=== PATIENT | female | born 1950 | race Caucasian/White ===

== ENCOUNTER → 2019-10-04 09:03 | Outpatient (CLI) | payer MEDICARE, BC, SELFPAY ==
--- NOTE | 2019-10-04 | DI.RAD.S_ITS ---
PROCEDURE: XR SHOULDER LT MIN 2V INDICATIONS: bilateral shoulder pain TECHNIQUE: 3 views of the shoulder were acquired. COMPARISON: [facility], CR, XR SHOULDER RT MIN 2V, 10/04/2019, 9:08. FINDINGS: Bones: No fractures or dislocations. No suspicious bony lesions. Visualized ribs appear intact. Mild to moderate acromioclavicular and glenohumeral joint degeneration. Degenerative disc and facet disease noted in the lower cervical spine. Soft tissues: No suspicious soft tissue calcifications. IMPRESSION: 1. Xlnr-vl-kfsutxep degenerative joint disease. 2. Degenerative disc and facet disease in the lower cervical spine. Dictated by: Bethany Burks M.D. on 10/04/2019 at 10:27 Approved by: Bethany Burks M.D. on 10/04/2019 at 10:29
--- NOTE | 2019-10-04 | DI.RAD.S_ITS ---
PROCEDURE: XR SHOULDER RT MIN 2V INDICATIONS: Bilateral shoulder pain TECHNIQUE: 3 views of the shoulder were acquired. COMPARISON: None. FINDINGS: Bones: No fractures or dislocations. Superior subluxation of humeral head. There is moderate acromioclavicular and glenohumeral joint degeneration. No suspicious bony lesions. Visualized ribs appear intact. Soft tissues: No suspicious soft tissue calcifications. IMPRESSION: 1. Moderate degenerative joint disease. 2. Superior migration of humeral head suggesting rotator cuff tear. If clinical symptoms persist or clinical suspicion for internal derangement is high, MRI is suggested for further evaluation. Dictated by: Bethany Burks M.D. on 10/04/2019 at 10:20 Approved by: Bethany Burks M.D. on 10/04/2019 at 10:27
== END ==
PROVIDERS: PCP Family Medicine; Visit Provider Family Medicine
DX: M25.512 Pain in left shoulder (principal); M25.511 Pain in right shoulder; M19.011 Primary osteoarthritis, right shoulder; M19.012 Primary osteoarthritis, left shoulder; M50.30 Other cervical disc degeneration, unspecified cervical region
CPT/HCPCS: 73030

== ENCOUNTER → 2019-11-07 08:13 | Outpatient (CLI) | payer MEDICARE, BC, SELFPAY ==
--- NOTE | 2019-11-07 | DI.US.S_ITS ---
LIMITED ULTRASOUND OF LEFT BREAST: 11/07/2019 CLINICAL: Focal left breast pain. Comparison is made to exams dated: 11/07/2019 mammogram - [facility], 09/14/2018 mammogram, 08/17/2017 mammogram, and 07/31/2017 mammogram - [facility]. Real-time ultrasound of the left breast 1-2 o'clock region was performed on the area of interest. IMPRESSION: NEGATIVE There is no sonographic evidence of malignancy. There are no abnormalities seen in the left breast to correspond with the pain at 1 and 2 o'clock, however, clinical followup is recommended. A 1 year screening mammogram is recommended. This exam was interpreted at Station ID: [id number]. Electronically Signed By: Jayden vergara/mayda:11/07/2019 09:47:06 letter sent: Clinical Evaluation Ultrasound BI-RADS: 1 Negative
--- NOTE | 2019-11-07 | DI.MG.S_ITS ---
BILATERAL DIGITAL DIAGNOSTIC MAMMOGRAM 3D/2D: 11/07/2019 CLINICAL: Diffuse Cystic mastopathy of Unspecified breast. Comparison is made to exams dated: 09/14/2018 mammogram, 08/17/2017 mammogram, 07/31/2017 mammogram, and 05/29/2015 mammogram - [facility]. There are scattered fibroglandular elements in both breasts. No significant masses, calcifications, or other findings are seen in either breast. IMPRESSION: INCOMPLETE: NEEDS ADDITIONAL IMAGING EVALUATION There is no abnormality seen in the left breast to correspond with the pain in the upper outer quadrant, however, ultrasound is recommended. This exam was interpreted at Station ID: [id number]. NOTE: For mammograms, a report in lay terms will be sent to the patient. Approximately 15% of breast malignancies will not be visualized mammographically. In the management of a palpable breast mass, a negative mammogram must not discourage biopsy of a clinically suspicious lesion. Electronically Signed By: Jayden vergara/mayda:11/07/2019 09:04:23 ACR BI-RADS Category 0: Incomplete 3340F
== END ==
PROVIDERS: PCP Family Medicine; Referring Provider Family Medicine; Visit Provider Family Medicine
DX: R92.8 Other abnormal and inconclusive findings on diagnostic imaging of breast (principal); N60.19 Diffuse cystic mastopathy of unspecified breast; N64.4 Mastodynia
CPT/HCPCS: 76642; 77066; G0279

== ENCOUNTER → 2020-02-29 12:25 | Outpatient (CLI) | payer MEDICARE, BC, SELFPAY ==
--- NOTE | 2020-02-29 | DI.RAD.S_ITS ---
PROCEDURE: XR LUMBAR SPINE MIN 4V INDICATIONS: Other intervertebral disc degeneration, lumbar region TECHNIQUE: 3 views of the lumbar spine were acquired. COMPARISON: None. FINDINGS: Bones: There are 5 veo-ked-xjldeae lumbar vertebral bodies. There is grade I L2 on L3 retrolisthesis and grade I L4 on L5 anterolisthesis. Mild to moderate degenerative changes are present most severe at L2-3 and L5-S1. No compression deformities. Soft tissues: Overlying bowel gas pattern is normal. No suspicious soft tissue calcifications. IMPRESSION: Degenerative change. Spondylolisthesis. Dictated by: Kami Roblero M.D. on 02/29/2020 at 17:09 Approved by: Kami Roblero M.D. on 02/29/2020 at 17:09
== END ==
PROVIDERS: PCP Family Medicine; Referring Provider Family Medicine; Visit Provider Family Medicine
DX: M51.36 Other intervertebral disc degeneration, lumbar region (principal); M47.816 Spondylosis without myelopathy or radiculopathy, lumbar region; M47.817 Spondylosis without myelopathy or radiculopathy, lumbosacral region; M43.16 Spondylolisthesis, lumbar region
CPT/HCPCS: 72100

== ENCOUNTER → 2020-04-10 12:51 | Outpatient (CLI) | payer MEDICARE, BC, SELFPAY ==
--- NOTE | 2020-04-10 12:55 | DI.MRI.S_ITS ---
PROCEDURE: MR LUMBAR SPINE WO CON INDICATIONS: Other intervertebral disc degeneration, lumbar reg TECHNIQUE: Noncontrast sagittal T1 spin echo and T2 fast echo, sagittal STIR, axial T1 and T2 fast spin echo through the lumbar spine. In cases with scoliosis, additional coronal T2 fast spin echo may be performed. COMPARISON: [facility], CR, XR LUMBAR SPINE MIN 4V, 02/29/2020, 12:48. FINDINGS: Image quality: Excellent. Alignment and Curvature: 5 lumbar type vertebral bodies are present by plain film. There is mild grade 1 retrolisthesis of L1 on L2, L2 on L3, and L3 on L4. Mild grade 1 anterolisthesis of L4 on L5. Bone Marrow: Marrow is of normal overall signal. No acute vertebral body compression fractures. There is moderate reactive signal within the endplates adjacent to the L2-L3 intervertebral disc. Mild reactive signal within the endplates adjacent to the T12-L1, L1-L2, L3-L4, L4-L5, and L5-S1 intervertebral discs. Spinal Cord: Conus medullaris terminates at the upper L1 level. Visualized cord demonstrates normal signal and size. Paraspinous Soft Tissues: No paravertebral masses. L1-L2: Moderate disc height loss and desiccation. Mild diffuse disc bulge. Mild canal stenosis. No foraminal stenosis. L2-L3: Moderate disc height loss and desiccation. Mild diffuse disc bulge/osteophyte. Mild facet and ligamentum hypertrophy. Mild epidural lipomatosis. Mild canal stenosis. Mild bilateral foraminal stenosis. L3-L4: Mild disc desiccation and diffuse disc bulge. Mild facet and ligament flavum hypertrophy. Mild epidural lipomatosis. Mild canal stenosis. Mild bilateral foraminal stenosis. L4-L5: Moderate disc height loss and desiccation. Mild diffuse disc bulge. Moderate facet and ligamentum flavum hypertrophy. Mild canal stenosis. Mild bilateral foraminal stenosis. L5-S1: Moderate disc height loss and desiccation. Mild diffuse disc bulge/osteophyte. Mild bilateral facet hypertrophy. Mild canal stenosis. Moderate bilateral foraminal stenosis. IMPRESSION: 1. Multilevel degenerative disc and facet disease, as well as ligamentum flavum hypertrophy and epidural lipomatosis. 2. Mild multilevel canal stenoses. 3. Multilevel foraminal stenoses, worst at L5-S1 bilaterally where there are moderate foraminal stenoses present. Dictated by: Osmar Flores M.D. on 04/10/2020 at 13:34 Approved by: Osmar Flores M.D. on 04/10/2020 at 13:40
== END ==
PROVIDERS: PCP Family Medicine; Referring Provider Family Medicine; Visit Provider Family Medicine
DX: M51.36 Other intervertebral disc degeneration, lumbar region (principal); M51.37 Other intervertebral disc degeneration, lumbosacral region; M47.816 Spondylosis without myelopathy or radiculopathy, lumbar region; M47.817 Spondylosis without myelopathy or radiculopathy, lumbosacral region; M48.061 Spinal stenosis, lumbar region without neurogenic claudication; M48.07 Spinal stenosis, lumbosacral region; E88.2 Lipomatosis, not elsewhere classified
CPT/HCPCS: 72148

== ENCOUNTER → 2020-06-11 12:41 | Outpatient (CLI) | payer MEDICARE, BC, SELFPAY ==
[2020-06-12 17:12] LABS: COVID19 Sendout Not Detected (Not Detect)
== END ==
PROVIDERS: PCP Family Medicine; Visit Provider Nurse Practitioner
DX: Z11.59 Encounter for screening for other viral diseases (principal)
CPT/HCPCS: 87635

== ENCOUNTER 2020-06-14 08:08 | Outpatient (CLI) | payer MEDICARE, BC, SELFPAY ==
[2020-06-14] VITALS (7 sets, daily range): BP systolic 112–167; BP diastolic 58–75; PULSE 43–53; RESP 13–17; O2SAT 99–100
--- NOTE | 2020-06-14 08:13 | DI.RAD.S_ITS ---
PROCEDURE: PAIN L/S FACET INJ/BLK 1ST MILO COMPARISON: None. INDICATIONS: SPONDYLOSIS FINDINGS: Fluoroscopic spot filming was performed to verify placement of spinal needles at the L4-L5, L5-S1 level(s), as labeled on the films. Appropriate location(s) of the needle tip(s) was confirmed by injection of iodinated contrast. Dictated by: Bladimir Mazariegos M.D. on 06/14/2020 at 10:06 Approved by: Bladimir Mazariegos M.D. on 06/14/2020 at 10:07
[2020-06-14] MEDS: fentaNYL 100 MCG/2 ML INJ 50 MCG IV (09:38)
[2020-06-14] MEDS: MIDAZOLAM 5 MG/5 ML VIAL IV (09:43)
[2020-06-14] MEDS: BETAMETHASONE 30 MG/5 ML MDV 12 MG INJ (09:43)
[2020-06-14] MEDS: LIDOCAINE 1% 20 ML 10 ML INJ (09:44)
[2020-06-14] MEDS: IOPAMIDOL 15 ML VIAL 3 ML INJ (09:44)
[2020-06-14] MEDS: BUPIVACAINE 0.5% (PF) VIAL 2 ML INJ (09:44)
--- NOTE | 2020-06-14 09:52 | P.PCN_ITS ---
Date/Time/Diagnoses Date of procedure: 06/14/20 Time of procedure: 09:52 Pre-procedure diagnosis: 1. FACET ARTHROPATHY 2. AXIAL LBP 3. MULTILEVEL DDD Post-procedure diagnosis: same Procedure Notes Procedure: 1. FLUOROSCOPICALLY GUIDED CONTRAST CONTROLLED FACET JOINT INJECTIONS BILATERAL L4/5, L5/S1 Indications: Ruth is referred by for treatment of Axial LBP Physician: Leonard Hester Total Fluoroscopy time (seconds): 16 Total sedation minutes: 11 Complications: none Procedure in detail & Post-procedure care: FINDINGS Multilevel Facet Arthropathy with Clinically significant axial LBP DESCRIPTION OF PROCEDURE Fluoroscopically guided, contrast-controlled bilateral L4/5, L5/S1 facet joint injections. Following review of allergy and review of potential side effects and complications, including, but not necessarily limited to, infection, allergic reaction, local tissue breakdown, stroke, temporary or permanent nerve injury, paralysis, and possible , the patient indicated that the patient understood and agreed to proceed. An informed consent document was signed by the patient, witnessed by a nurse, and placed in the patient's chart. Additionally, other treatment options including medications, modalities, and physical therapy were reviewed with the patient. After review of previous anaesthesic history and IV conscious sedation the patient was deemed safe to proceed with today?s procedure with IV conscious sedation as ASA class II designation. Safety time-out was performed to confirm patient ID, procedure to be performed and site of procedure. IV sedation was accomplished with a combination of 3mg of Versed and 50mcg of Fentanyl was administered by the RN after DO order, titrated to patient comfort during the course of the procedure while the patient remained responsive to all verbal commands In the prone position, following sterile prep and drape of the lumbar region, the posterior aspect of the L4/5, L5/S1 facet joints were identified fluoroscopically. The skin was anesthetized via a 25-gauge 1.5inch needle with 1% lidocaine solution into the corresponding facet joints. At this point, a 22- gauge 3.5-inch spinal needle was atraumatically introduced and advanced under fluoroscopic guidance into the corresponding facet joints. Following negative aspiration, injections of approximately 0.2cc of Isovue 200 confirmed inte rarticular placement without vascular uptake. The identical procedure was then performed at the L4/5, L5/S1 facet joints on the left. Radiological data, including multiple fluoroscopic views of the lumbosacral spine, reveal a spinal needle at the L4/5, L5/S1 facet joints bilaterally. Subsequent views show flow of contrast material both superiorly and inferiorly within the joint space without vascular or intrathecal uptake. At this point, a total of 0.5cc including a mixture of 0.25cc Marcaine and 0.25cc betamethasone was injected without complication into each of the corresponding facet joints. The patient tolerated the procedure well without signs or symptoms of complications prior to transfer to the recovery area continued monitoring without incident. The patient was then transferred to the recovery area where they were observed for an appropriate period of time after the injection. The patient reported a VAS score of 7 prior to the procedure and a post- procedure VAS of 0. POST OP INSTRUCTIONS The patient was provided a Pain Log to continue to record their response to the target-specific procedure prior to follow-up visit with their referring physician. Additionally, specific post-injection care instructions and a contact number to our office were provided if concerns arise regarding possible complications associated with the procedure are suspected.
== END 2020-06-14 10:25 | disposition home or self-care (01) ==
LOC: RAD 08:09
PROVIDERS: PCP Family Medicine; Referring Provider Family Medicine; Visit Provider Physical Medicine & Rehabilitation
DX: M47.816 Spondylosis without myelopathy or radiculopathy, lumbar region (principal); M47.817 Spondylosis without myelopathy or radiculopathy, lumbosacral region; M54.5 Low back pain; M51.36 Other intervertebral disc degeneration, lumbar region; M51.37 Other intervertebral disc degeneration, lumbosacral region
CPT/HCPCS: 64493; 64494; 99152; J0702; J2250; J3010

== ENCOUNTER → 2020-09-04 13:33 | Outpatient (CLI) | payer MEDICARE, BC, SELFPAY ==
[2020-09-04 15:47] LABS: COVID19 -Nasal RAPID Negative (Negative)
== END ==
PROVIDERS: PCP Family Medicine; Visit Provider Physical Medicine & Rehabilitation
DX: Z01.812 Encounter for preprocedural laboratory examination (principal); Z11.59 Encounter for screening for other viral diseases
CPT/HCPCS: 87635; C9803

== ENCOUNTER 2020-09-06 12:33 | Outpatient (CLI) | payer MEDICARE, BC, SELFPAY ==
[2020-09-06] VITALS (10 sets, daily range): BP systolic 96–120; BP diastolic 51–62; PULSE 51–61; RESP 12–20; TEMP 36.2; O2SAT 94–100
--- NOTE | 2020-09-06 12:35 | DI.RAD.S_ITS ---
PROCEDURE: PAIN L/S FACET INJ/BLK 1ST MILO COMPARISON: [facility], , PAIN L/S FACET INJ/BLK 1ST MILO, 06/14/2020, 9:38. INDICATIONS: SPONDYLOSIS FINDINGS: Fluoroscopic spot filming was performed to verify placement of spinal needles on both sides at the L4, L5, and S1 levels, as labeled on the films. Appropriate locations of the needle tips was confirmed by injection of iodinated contrast. IMPRESSION: Intraprocedural examination within normal limits. Dictated by: Nabil Kasper M.D. on 09/06/2020 at 14:03 Approved by: Nabil Kasper M.D. on 09/06/2020 at 14:03
[2020-09-06] MEDS: fentaNYL 100 MCG/2 ML INJ 50 MCG IV (14:06)
[2020-09-06] MEDS: MIDAZOLAM 5 MG/5 ML VIAL IV (14:23)
--- NOTE | 2020-09-06 14:27 | PM.PROC.IR.1 ---
Date/Time/Diagnoses Date of procedure: 09/06/20 Time of procedure: 14:27 Pre-procedure diagnosis: 1. FACET ARTHROPATHY Post-procedure diagnosis: same Procedure Notes Procedure: 1. BILATERAL- L4, L5 and S1 DIAGNOSTIC MB BLOCKS with LA Anesthetic Indications: Ruth is referred by Dr. Sawyer for treatment of Bilateral Axial LBP. Physician: Leonard Hester Total Fluoroscopy time (seconds): 15 Total sedation minutes: 19 Complications: none Procedure in detail & Post-procedure care: DESCRIPTION OF PROCEDURE Fluoroscopically guided, contrast-controlled bilateral L4, L5 and S1 medial branch blocks with 0.5cc of 0.5% Marcaine. Following review of allergy and review of potential side effects and complications, including, but not necessarily limited to, infection, allergic reaction, local tissue breakdown, nerve injury, paralysis, stroke and possible , the patient indicated that the patient understood and agreed to proceed. An informed consent document was signed by the patient, witnessed by a nurse, and placed in the patient's chart. After review of previous anaesthesic history and IV conscious sedation the patient was deemed safe to proceed with today's procedure with IV conscious sedation as ASA class II designation. Safety time-out was performed to confirm patient ID, procedure to be performed and site of procedure. IV sedation was accomplished with a combination of 3mg of Versed and 50mcg of Fentanyl was administered by the RN after DO order, titrated to patient comfort during the course of the procedure while the patient remained responsive to all verbal commands In the prone position, following sterile prep and drape of the lumbar region, the right L4, L5 and S1 anatomical location of the medial branch of the dorsal ramus was identified fluoroscopically. Subsequently an anesthetic skin wheal using 1% lidocaine solution was initiated at each of the anatomical spots. Subsequently then a 22-gauge 3.5-inch spinal needle was atraumatically introduced and advanced under fluoroscopic guidance at each of the corresponding sites at the right L4, L5 and S1 MB. After negative aspiration, 0.2cc of Isovue 200 was injected, confirming placement without vascular or intrathecal uptake. Subsequently then 0.5cc of 0.5% Marcaine solution was injected at each of the corresponding sites at the right L4, L5 and S1 medial branch locations. The identical procedure was replicated on the left. The patient tolerated the procedure well without signs or symptoms of complications prior to transfer to the recovery area continued monitoring without incident. Post-procedure, the patient was monitored initiating provocative activities to measure the amount of relief from block of the facetogenic pain. The patient reported a VAS of 7 prior to the procedure and a post-procedure VAS of 1. It has been a pleasure to assist in the diagnostic and therapeutic care of your patient. POST OP INSTRUCTIONS The patient was provided with a Pain Log to complete over the next several hours and subsequent days prior to the patient's follow up with the ordering physician. If the patient has vp marketing services and skin relief to the solution applied, then they may be a candidate for medial branch rhizotomy. The patient is aware, was provided, once again, with a Pain Log and will follow up with the referring physician for review and clinical correlation
== END 2020-09-06 15:06 | disposition home or self-care (01) ==
LOC: RAD 12:33
PROVIDERS: PCP Family Medicine; Referring Provider Family Medicine; Visit Provider Physical Medicine & Rehabilitation
DX: M47.816 Spondylosis without myelopathy or radiculopathy, lumbar region (principal); M47.817 Spondylosis without myelopathy or radiculopathy, lumbosacral region; M54.5 Low back pain
CPT/HCPCS: 64493; 64494; 99152; J2250; J3010

== ENCOUNTER → 2020-11-10 10:30 | Outpatient (CLI) | payer MEDICARE, BC, SELFPAY ==
--- NOTE | 2020-11-10 10:33 | DI.MG.S_ITS ---
BILATERAL DIGITAL SCREENING MAMMOGRAM 3D/2D WITH CAD: 11/10/2020 CLINICAL: Routine screening. Family history of breast cancer. Comparison is made to exams dated: 11/07/2019 mammogram - [facility], 09/14/2018 mammogram, 05/29/2015 mammogram, and 07/31/2017 mammogram - [facility]. There are scattered fibroglandular elements in both breasts. Current study was also evaluated with a Computer Aided Detection (CAD) system. There is a possible new architectural distortion in the right breast at 6 o'clock middle depth. No other significant masses, calcifications, or other findings are seen in either breast. IMPRESSION: INCOMPLETE: NEEDS ADDITIONAL IMAGING EVALUATION The possible new architectural distortion in the right breast is indeterminate. Additional views with possible ultrasound are recommended. This exam was interpreted at Station ID: [id number]. NOTE: For mammograms, a report in lay terms will be sent to the patient. Approximately 15% of breast malignancies will not be visualized mammographically. In the management of a palpable breast mass, a negative mammogram must not discourage biopsy of a clinically suspicious lesion. Electronically Signed By: Jacob Trinidad M.D. aty/:11/12/2020 08:04:50 letter sent: Additional Imaging Needed ACR BI-RADS Category 0: Incomplete 3340F
== END ==
PROVIDERS: PCP Family Medicine; Visit Provider Family Medicine
DX: Z12.31 Encounter for screening mammogram for malignant neoplasm of breast (principal); Z80.3 Family history of malignant neoplasm of breast
CPT/HCPCS: 77063; 77067

== ENCOUNTER → 2020-11-29 12:10 | Outpatient (CLI) | payer MEDICARE, BC, SELFPAY ==
--- NOTE | 2020-11-29 12:13 | DI.US.S_ITS ---
PROCEDURE: US RENAL COMPLETE INDICATIONS: Personal history of urinary (tract) infections TECHNIQUE: Real-time scanning was performed of the kidneys and bladder, with image documentation. COMPARISON: [facility], MR, MR LUMBAR SPINE WO CON, 04/10/2020, 13:05. FINDINGS: Kidneys: Kidneys are normal in size. Right kidney measures 11.5 cm long; left kidney measures 10.1 cm long. Right renal cortical thickness is 1.6 cm; left renal cortical thickness is 1.4 cm. Renal cortical echotexture is normal. No hydronephrosis or nephrolithiasis. No suspicious solid mass lesions. Bladder: Pre-void bladder volume is 168 mL. Post-void residual is 56 mL. Pre-void images demonstrate no intraluminal masses or stones. On pre-void images, both ureteral jets are noted with color Doppler interrogation. (Of note, ureteral jets may not be detectable in up to 25% of cases due to insufficient differences in specific gravity between ureteral and bladder urine). Miscellaneous: No free pelvic fluid. Increased echogenicity of the liver. IMPRESSION: 1. No hydronephrosis. 2. Postvoid residual 56 cc. 3. Increased hepatic echogenicity most consistent with hepatic steatosis. Other forms of hepatocellular disease could have similar appearance. Dictated by: Cedric Hilliard M.D. on 11/29/2020 at 15:44 Approved by: Cedric Hilliard M.D. on 11/29/2020 at 15:46
== END ==
PROVIDERS: PCP Family Medicine; Referring Provider Urology; Visit Provider Urology
DX: Z09 Encounter for follow-up examination after completed treatment for conditions other than malignant neoplasm (principal); Z87.440 Personal history of urinary (tract) infections; Z87.442 Personal history of urinary calculi
CPT/HCPCS: 76770

== ENCOUNTER → 2020-12-04 14:04 | Outpatient (CLI) | payer MEDICARE, BC, SELFPAY ==
--- NOTE | 2020-12-04 14:06 | DI.MG.S_ITS ---
UNILATERAL RIGHT DIGITAL DIAGNOSTIC MAMMOGRAM 3D/2D WITH ADDITIONAL VIEWS: 12/04/2020 CLINICAL: Additional evaluation requested from prior study. Comparison is made to exams dated: 11/10/2020 mammogram, 11/07/2019 mammogram - [facility], 09/14/2018 mammogram, and 08/17/2017 mammogram - [facility]. There are scattered fibroglandular elements in right breast. There is possible architectural distortion in the right breast at 6 o'clock middle depth. This is not seen in additional views. No other significant masses or calcifications are seen in the breast. IMPRESSION: INCOMPLETE: NEEDS ADDITIONAL IMAGING EVALUATION The possible architectural distortion in the right breast is indeterminate. A targeted ultrasound is recommended and will immediately follow. This exam was interpreted at Station ID: [id number]. NOTE: For mammograms, a report in lay terms will be sent to the patient. Approximately 15% of breast malignancies will not be visualized mammographically. In the management of a palpable breast mass, a negative mammogram must not discourage biopsy of a clinically suspicious lesion. Electronically Signed By: Cedric Hilliard M.D. slc/:12/04/2020 14:51:56 ACR BI-RADS Category 0: Incomplete 3340F
--- NOTE | 2020-12-04 14:07 | DI.US.S_ITS ---
LIMITED ULTRASOUND OF RIGHT BREAST: 12/04/2020 CLINICAL: Patient returns today to evaluate a focal asymmetry in the right breast. Comparison is made to exams dated: 12/04/2020 mammogram, 11/10/2020 mammogram, 11/07/2019 mammogram - [facility], 09/14/2018 mammogram, and 08/17/2017 mammogram - [facility]. Color flow and real-time ultrasound of the right breast 6-8 o'clock region were performed. [place] scale images of the real-time examination were reviewed. No mass or area of architectural distortion. There is a benign 1 cm x 0.6 cm x 0.6 cm oval simple cyst in the right breast at 7 o'clock middle depth 14 cm from the nipple. This oval simple cyst is anechoic with a well-defined boundary and posterior acoustic enhancement. Color flow imaging demonstrates that there is no vascularity present. IMPRESSION: BENIGN There is no sonographic evidence of malignancy. A 1 cm simple benign cyst in the right breast in the region of concern. A 1 year screening mammogram is recommended. Exam findings were conveyed to the patient. This exam was interpreted at Station ID: [id number]. Electronically Signed By: Cedric Hilliard M.D. [facility]/:12/04/2020 16:13:35 letter sent: Normal Exam Ultrasound BI-RADS: 2 Benign
== END ==
PROVIDERS: PCP Family Medicine; Visit Provider Family Medicine
DX: R92.8 Other abnormal and inconclusive findings on diagnostic imaging of breast (principal); N60.01 Solitary cyst of right breast
CPT/HCPCS: 76642; 77065; G0279

== ENCOUNTER → 2020-12-11 13:14 | Outpatient (CLI) | payer MEDICARE, BC, SELFPAY ==
[2020-12-11 14:29] LABS: COVID19 -Nasal RAPID Negative (Negative)
== END ==
PROVIDERS: PCP Family Medicine; Visit Provider Physical Medicine & Rehabilitation
DX: Z20.822 Contact with and (suspected) exposure to COVID-19 (principal)
CPT/HCPCS: 87635; C9803

== ENCOUNTER 2020-12-13 07:01 | Outpatient (CLI) | payer MEDICARE, BC, SELFPAY ==
[2020-12-13] VITALS (11 sets, daily range): BP systolic 98–156; BP diastolic 52–69; PULSE 48–64; RESP 11–17; TEMP 36.2; O2SAT 98–100
--- NOTE | 2020-12-13 07:02 | DI.RAD.S_ITS ---
PROCEDURE: PAIN L/S MED/LAT N RFA BILAT INDICATIONS: SPONDYLOSIS COMPARISON: None. FINDINGS: Fluoroscopic spot filming was performed to verify placement of spinal needles at the bilateral L4, L5, and S1 level(s), as labeled on the films. Appropriate location(s) of the needle tip(s) was confirmed by injection of iodinated contrast. IMPRESSION: Fluoroscopic guidance for bilateral L4, L5, and S1 medial branch rhizotomy. Please see procedural note for further details. Dictated by: Jacob Trinidad M.D. on 12/13/2020 at 16:49 Approved by: Jacob Trinidad M.D. on 12/13/2020 at 16:50
[2020-12-13] MEDS: fentaNYL 100 MCG/2 ML INJ 50 MCG IV (08:32)
[2020-12-13] MEDS: LIDOCAINE 1% 20 ML INJ (08:38)
[2020-12-13] MEDS: BUPIVACAINE 0.5% (PF) VIAL 5 ML INJ (08:39)
[2020-12-13] MEDS: MIDAZOLAM 5 MG/5 ML VIAL IV (08:51)
--- NOTE | 2020-12-13 09:08 | P.PCN_ITS ---
Date/Time/Diagnoses Date of procedure: 12/13/20 Time of procedure: 09:08 Pre-procedure diagnosis: 1. RECALCITRANT FACET ARTHROPATHY Post-procedure diagnosis: same Procedure Notes Procedure: 1. BILATERAL L4 AND L5 MEDIAL BRANCH RADIOFREQUENCY NEUROTOMY AND S1 DORSAL RAMUS BRANCH RADIOFREQUENCY NEUROTOMY Indications: Ruth is referred by Dr. Sawyer for treatment of facet arthropathy. Physician: Leonard Hester Total Fluoroscopy time (seconds): 20 Total sedation minutes: 30 Complications: none Procedure in detail & Post-procedure care: DESCRIPTION OF PROCEDURE Bilateral L4 and L5 medial branch radiofrequency neurotomy and bilateral S1 dorsal ramus radiofrequency neurotomy under fluoroscopy with conscious sedation. The patient is well known to this clinic having undergone previous facet injections with good but temporary relief. The patient has experienced appropriate, concordant relief with previous facet and median branch blocks but the patient's pain has been recalcitrant to further conservative measures. Therefore, based upon the patient's relief and persistent symptoms, the patient is considered an appropriate candidate for facet rhizotomy. All of the patient's questions regarding the risks versus benefits of the procedure, including, but not limited to, bleeding, infection, temporary as well as lasting nerve injury, paralysis, stroke, and , as well treatment alternatives were answered to satisfaction. After obtaining informed consent, denial of pertinent drug allergies, as well as being made aware of the potential risks of bleeding, infection, spinal cord trauma, paralysis, temporary and permanent nerve damage, seizure, stroke, and possible , the patient was brought to the fluoroscopy suite and positioned prone on the fluoroscopy table. The lumbar region was prepped with Betadine and covered with a fenestrated drape in the usual sterile fashion. Appropriate monitors applied including pulse oximeter, pulse, and blood pressure for regular monitoring throughout the procedure. After review of previous anaesthesic history and IV conscious sedation the patient was deemed safe to proceed with today's procedure with IV conscious sedation as ASA class II designation. Safety time-out was performed to confirm patient ID, procedure to be performed and site of procedure. IV sedation was accomplished with a combination of 5mg of Versed and 50mcg of Fentanyl administered by the RN after DO order, titrated to patient comfort during the course of the procedure while the patient remained responsive to all verbal commands. After local infiltration using 1% lidocaine, under fluoroscopic guidance, a 10- cm RF insulated needle with a 10-mm active tip was positioned parallel to the junction of the right sacral ala and the superior articulating process where the S1 dorsal ramus resides. Needle placement was confirmed with motor stimulation of .5v on the right which produced local stimulation without radicular component. The stimulation was then increased to 2v with, once again, only local multifidus stimulation without radicular component. The needle was then removed and the identical procedure was performed along the length of the right L5 medial branch with motor stimulation at .7v on the right. The identical procedure was once again performed along the length of the right L4 medial branch with motor stimulation of .5v on the right. The medial branches were then anesthetised with 0.5% Marcaine. This was then followed by two discreet lesions performed at 80 degrees Celsius for 90 seconds each. The identical procedure was repeated on the left. The patient tolerated the procedure well without signs or symptoms of complications prior to transfer to the recovery area continued monitoring without incident. The patient was then transferred to the recovery area where they were observed for an appropriate period of time after the injection. The patient reported a VAS score of 9 prior to the procedure and a post-procedure VAS of 0. POST OP INSTRUCTIONS The patient was provided a Pain Log to continue to record the patient's response to the target-specific procedure prior to the patient's follow-up visit with the referring physician. Additionally, specific post-injection care instructions and a contact number to our office were provided if concerns arise regarding possible complications associated with the procedure are suspected.
== END 2020-12-13 09:25 | disposition home or self-care (01) ==
LOC: RAD 07:02
PROVIDERS: PCP Family Medicine; Referring Provider Physical Medicine & Rehabilitation; Visit Provider Physical Medicine & Rehabilitation
DX: M47.816 Spondylosis without myelopathy or radiculopathy, lumbar region (principal); M47.817 Spondylosis without myelopathy or radiculopathy, lumbosacral region
CPT/HCPCS: 64635; 64636; 99152; 99153; J2250; J3010

== ENCOUNTER → 2021-04-29 07:59 | Outpatient (CLI) | payer MEDICARE, BC, SELFPAY ==
[2021-04-29 12:18] LABS: COVID19 -Nasal RAPID Negative (Negative)
== END ==
PROVIDERS: PCP Family Medicine; Visit Provider Physician Assistant
DX: Z01.812 Encounter for preprocedural laboratory examination (principal); Z20.822 Contact with and (suspected) exposure to COVID-19
CPT/HCPCS: 87635; C9803

== ENCOUNTER 2021-04-30 13:49 | Day surgery (SDC) | payer MEDICARE, BC, SELFPAY ==
--- NOTE | 2021-04-30 | PATH_ITS ---
[facility] Accession Number: [id number] . 01 Material submitted: . PART A: ileum - ILEUM PART B: colon - RANDOM COLON BIOPSIES . 01 Clinical history: . DX COLONOSCOPY/EGD W/POSS BX . 02 Diagnosis: A. Ileum, Biopsy: Mild active ileitis; please see comment. Negative for granulomata, dysplasia or malignancy. . B. Random Colon, Biopsies: Colonic mucosa with no diagnostic abnormality. Negative for active, chronic, and microscopic colitis. Negative for dysplasia and malignancy. . [facility] 05/02/2021 1049 Local . 02 Comment: A. The findings in the ileal biopsy raise a differential diagnosis including infection, drug/toxin-induced injury and, in the appropriate clinical setting, idiopathic inflammatory bowel disease. . 02 Electronically signed: . Fritz Dukes MD, PhD, Pathologist NPI- [id number] . 01 Gross description: . Part A: ILEUM: Received in formalin are 2 fragment(s) of vargas, soft tissue measuring 0.3 x 0.2 x 0.1 cm to 0.1 x 0.1 x 0.1 cm submitted entirely in 1 cassette(s) Part B: RANDOM COLON BIOPSIES: Received in formalin are 2 fragment(s) of vargas, soft tissue measuring 0.2 x 0.2 x 0.1 cm to 0.1 x 0.1 x 0.1 cm submitted entirely in 1 cassette(s) /[facility]EL[facility] 05/01/2021 0817 Local . 02 Pathologist provided ICD-10: R19.7, K52.9 . 02 CPT . 740959, [id number] Performed at: 01 [facility] [address] [place] [address] [address], [employer], [place] [id number] MD Jayden Joshi MD Phone: [phone] Performed at: 02 [facility] [address] [place] [id number] MD Windy Becerra MD Phone: [phone]
[2021-04-30 14:37] LABS: Add Manual Diff / Slide Review NO; Basophils Absolute Auto 100 /uL (0-100); Eosinophils Absolute Auto 200 /uL (0-450); Eosinophils Percent Auto 1.5 % (2-4); Hematocrit 48.3 % (36-46); Hemoglobin 15.7 g/dL (12.0-16.0); Lymphocytes Absolute Auto 4000 /uL (1100-4500); Lymphocytes Percent Auto 36.4 % (25-40); Mean Corpuscular HGB Conc 32.5 % (30-36); Mean Corpuscular Hemoglobin 29.7 PG (26-34); Mean Corpuscular Volume 91.4 fL (80-100); Monocytes Absolute Auto 1100 /uL (0-900); Monocytes Percent Auto 9.8 % (3-14); Neutrophils Absolute Auto 5700 /uL (1500-7000); Neutrophils Percent Auto 51.3 % (50-75); Platelet Count 271 X10^3/uL (150-400); Red Blood Cell Count 5.29 X10^6/uL (4.0-5.2); Red Cell Distribution Width 14.5 % (11.6-14.8)
[2021-04-30 14:43] VITALS: BP 139/78; PULSE 80; RESP 18; TEMP 36.6; O2SAT 100
[2021-04-30] MEDS: LACTATED RINGERS 1,000 ML 42 ML IV (14:51)
[2021-04-30 15:00] LABS: BUN Creatinine Ratio 23.5 (6-22); Blood Urea Nitrogen 20 mg/dL (7-17); Calcium 9.6 mg/dL (8.4-10.2); Carbon Dioxide 25 mmol/L (22-32); Chloride 108 mmol/L (98-107); Estimated Glomerular Filt Rate > 60.0 mL/min (>60); Glucose 128 mg/dL (80-110); HEMOLYSIS 18 (0-50); Sodium 140 mmol/L (137-145)
--- NOTE | 2021-04-30 15:26 | PM.HP.1 ---
History of Present Illness History of Present Illness Date Patient Seen: 04/30/21 Time Patient Seen: 15:26 Chief complaint: DX COLONOSCOPY/EGD W/POSS BX Narrative: I reviewed my recent office note. Dysphagia and colon cancer screening. diarrhea Patient History Medical History Facet arthropathy, lumbar Gait instability Herniated nucleus pulposus, lumbar Raynauds phenomenon Vaginal enterocele Surgical History H/O knee surgery H/O shoulder surgery History of total abdominal hysterectomy Status post right foot surgery Family & Social History Family History Mother Cancer Tobacco & Substance use: Smoking Status Never smoker Meds Home Medications and Allergies Home Medications Medication Instructions Recorded Confirmed Type montelukast 10 mg tablet 10 mg PO DAILY 11/18/19 04/01/21 History (Singulair) oxybutynin chloride 5 mg tablet See Rx Instructions .ROUTE 04/23/20 04/01/21 Rx .COMPLEX #60 tab atorvastatin 10 mg tablet 10 mg PO DAILY 05/21/20 04/30/21 History furosemide 20 mg tablet 10 mg PO QAM 05/21/20 04/30/21 History hydrocodone 10 mg-acetaminophen 1 tab PO Q6H PRN 05/21/20 04/30/21 History 325 mg tablet lansoprazole 30 mg delayed 30 mg PO DAILY 05/21/20 04/01/21 History release,disintegrating tablet potassium chloride 10 mEq 10 meq PO DAILY 05/21/20 04/01/21 History tablet,extended release (Klor-Con) turmeric root extract 500 mg 1,000 mg PO DAILY 05/21/20 04/01/21 History capsule budesonide-formoterol HFA 80 2 puff INHALATION BID 08/22/20 04/30/21 History mcg-4.5 mcg/actuation aerosol inhaler (Symbicort) metoprolol succinate 25 mg 100 mg PO BID tab 08/22/20 04/01/21 History tablet,extended release 24 hr diclofenac sodium 75 mg 75 mg PO BID PRN #180 tab 04/01/21 04/30/21 Rx tablet,delayed release Allergies Allergy/AdvReac Type Severity Reaction Status Date / Time bee venom protein (honey bee) Allergy Severe Anaphylaxis Verified 04/30/21 14:33 Penicillins Allergy Intermediate Rash Verified 04/30/21 14:33 Sulfa (Sulfonamide Allergy Intermediate Rash Verified 04/30/21 14:33 Antibiotics) tramadol Allergy Intermediate Rash Verified 04/30/21 14:33 codeine Allergy itch Verified 04/30/21 14:33 Review of Systems Review of Systems ROS: Yes All systems reviewed with the patient and are negative except as otherwise documented Exam Vital Signs (past 8 hours): - 04/30/21 14:43 Temperature 97.8 F Pulse Rate 80 Respiratory Rate 18 Blood Pressure 139/78 Pulse Oximetry 100 Oxygen Delivery Method Room Air Const General: cooperative and comfortable Orientation: alert HENMT Head: normocephalic Ears: external ears normal Nose: external nose normal Face and sinus: normal facial exam Mouth: oral mucosae normal Eyes General: appearance normal, both eyes and all related structures Neck Neck: normal visual inspection Chest Chest: normal inspection of the chest Resp Effort & Inspection: normal respiratory effort Auscultation: clear to auscultation bilaterally Cardio Rate: regular rate Rhythm: regular rhythm Heart Sounds: no murmurs GI Inspection: normal to inspection Palpation: soft and No tender Auscultation: normal bowel sounds Skin General: no rashes or lesions noted and No jaundice Neuro General: patient alert and moves all extremities Cognition: normal cognition Speech: speech normal Extrem General: no pedal edema Psych Appearance: grossly normal Objective Labs Result Diagrams: 04/30/21 14:25 04/30/21 14:25 Labs: Laboratory Results - last 24 hr 04/30/21 04/30/21 14:25 14:25 WBC 11.0 RBC 5.29 H Hgb 15.7 Hct 48.3 H MCV 91.4 MCH 29.7 MCHC 32.5 RDW 14.5 Plt Count 271 Neut % (Auto) 51.3 Lymph % (Auto) 36.4 [place] % (Auto) 9.8 Eos % (Auto) 1.5 L Baso % (Auto) 1.0 Neut # (Auto) 5700 Lymph # (Auto) 4000 [place] # (Auto) 1100 H Eos # (Auto) 200 Baso # (Auto) 100 Sodium 140 Potassium 4.0 Chloride 108 H Carbon Dioxide 25 BUN 20 H Creatinine 0.85 Estimated GFR > 60.0 BUN/Creatinine Ratio 23.5 H Glucose 128 H Calcium 9.6 Assessment & Plan Assessment & Plan narrative: Dysphagia, diarrhea, colon cancer screening.
--- NOTE | 2021-04-30 15:28 | PM.PREOP ---
Pre-operative Note COVID-19 COVID-19 status: Negative Result date/Date tested (Pos, Neg/Pending): 04/29/21 Interval Note History & Physical reviewed/Exam performed by Physician: Yes Changes to H&P: No ASA Class (for procedural sedation): II
[2021-04-30 16:25] VITALS: BMI 35.0
--- NOTE | 2021-04-30 16:28 | PM.OP.ENDO ---
Operative Date/Time/Diagnoses Date of procedure: 04/30/21 Time of procedure: 16:28 Pre-op diagnosis: Dysphagia Diarrhea Colon cancer screening Post-op diagnosis: same Procedure & Clinicians Study performed: Esophagogastroscopy (incomplete EGD) Colonoscopy with biopsies Same procedure as scheduled: Yes Indications: Dysphagia, diarrhea, colon cancer screening Surgeon: Thomas Gutierrez Procedure Notes SCOAP/Timeout: Done Procedure in detail: After the risks and benefits were explained, written and verbal informed consent was obtained. The patient was brought into the procedure room and placed into the left lateral decubitus position. MAC was applied. See anesthesia notes. The scope was introduced into the mouth through the bite block and advanced under direct visualization to the proximal stomach. The patient was not all that tolerant of this aspect of the exam and was in atrial fibrillation to start with. Her heart rate dropped out at about 160 beats per minute. We elected to therefore terminate this aspect of the procedure the scope was withdrawn The scope was slowly withdrawn and Dr. alamo applied further medications to manage the rapid ventricular rate. Once the patient's heart rate was much more acceptable we pursue digital rectal examination. Mild internal hemorrhoids were noted. The scope was introduced into the rectum and advanced to the cecum as identified by the appendiceal orifice and ileocecal valve. The terminal ileum was interrogated. The scope was then slowly withdrawn to carefully examine the mucosa for any defects or lesions. Multiple direct views were made through the dentate line for exclusion of pathology. Colon was decompressed scope removed the patient tolerated the procedure well. Bowel prep adequate Scope withdrawal time: 9 minutes Sedation minutes: 24 Complications: none Impression: 1. Duodenum not seen. 2. Stomach. Distal stomach was not evaluated today. Proximal gastric mucosa appeared to be within normal limits. There is a very subtle small sliding hiatal hernia noted. 3. Esophagus: The patient had evidence of LA grade a erosive esophagitis. I did not appreciate any mass lesions nor any stricturing. The remainder of the body of the esophagus appeared unremarkable. 4. Colon there is no evidence of any colitis throughout. The patient had a patent anastomosis at approximately 20 cm from the anal verge. Random colon biopsies were acquired for exclusion of microscopic colitis. 5. Terminal ileum: There was a small ulcer noted in the terminal ileum. This was photographed and biopsied the remainder of the ileal mucosa appeared to be within normal limits. Post-procedure Recommendations: Will call with biopsy results Plan for aftercare: 1. Await histopathology 2. Increase lansoprazole to twice daily 3. Follow up in GI clinic within the next 4 weeks. Disposition: PACU
[2021-04-30 16:57] VITALS: BP 136/100; PULSE 118; RESP 18; TEMP 36.4; O2SAT 96
[2021-04-30 17:02] VITALS: BP 102/75; PULSE 87; RESP 16; O2SAT 97
[2021-04-30 17:07] VITALS: BP 116/70; PULSE 100; RESP 16; O2SAT 98
[2021-04-30 17:22] VITALS: PULSE 102; RESP 16; TEMP 36.4; O2SAT 97
[2021-04-30 17:55] VITALS: BP 123/75; PULSE 80; RESP 16; TEMP 36.6; O2SAT 100
== END 2021-04-30 18:10 | disposition home or self-care (01) ==
LOC: ENDO 13:51
PROVIDERS: PCP Family Medicine; Referring Provider Internal Medicine Gastroenterology; Visit Provider Internal Medicine Gastroenterology
PROC: 0DJ08ZZ Inspection of Upper Intestinal Tract, Via Natural or Artificial Opening Endoscopic (ICD-10-PCS; CPT 43235; principal; 2021-04-30 15:00)
PROC: 0DJD8ZZ Inspection of Lower Intestinal Tract, Via Natural or Artificial Opening Endoscopic (ICD-10-PCS; CPT 45378; 2021-04-30 15:00)
DX: K52.9 Noninfective gastroenteritis and colitis, unspecified (principal); R13.10 Dysphagia, unspecified; K20.80 Other esophagitis without bleeding; K44.9 Diaphragmatic hernia without obstruction or gangrene; I48.91 Unspecified atrial fibrillation; I10 Essential (primary) hypertension; E78.00 Pure hypercholesterolemia, unspecified; J45.909 Unspecified asthma, uncomplicated; F43.10 Post-traumatic stress disorder, unspecified; Z98.0 Intestinal bypass and anastomosis status; Z53.09 Procedure and treatment not carried out because of other contraindication
CPT/HCPCS: 45380; 43235; 80048; 85025; J2704

== ENCOUNTER → 2021-05-13 08:09 | Outpatient (CLI) | payer MEDICARE, BC, SELFPAY ==
[2021-05-13 12:47] LABS: COVID19 -Nasal RAPID Negative (Negative)
== END ==
PROVIDERS: PCP Family Medicine; Visit Provider Physical Medicine & Rehabilitation
DX: Z20.822 Contact with and (suspected) exposure to COVID-19 (principal)
CPT/HCPCS: 87635; C9803

== ENCOUNTER 2021-05-14 14:14 | Outpatient (CLI) | payer MEDICARE, BC, SELFPAY ==
[2021-05-14] VITALS (10 sets, daily range): BP systolic 113–172; BP diastolic 53–78; PULSE 60–72; RESP 12–23; TEMP 36.6; O2SAT 98–100
--- NOTE | 2021-05-14 14:18 | DI.RAD.S_ITS ---
PROCEDURE: PAIN L/S TRANSFORAMINAL INJECT INDICATIONS: SPONDYLOSIS COMPARISON: [facility], XA, PAIN L/S MED/LAT N RFA BILAT, 12/13/2020, 8:31. [facility], XA, PAIN L/S FACET INJ/BLK 1ST MILO, 09/06/2020, 14:11. FINDINGS: Fluoroscopic spot filming was performed to verify placement of a spinal needle at the L4-L5 level, as labeled on the films. Appropriate location of the needle tip was confirmed by injection of iodinated contrast. IMPRESSION: Intraprocedural examination within normal limits. Dictated by: Nabil Kasper M.D. on 05/14/2021 at 15:07 Approved by: Nabil Kasper M.D. on 05/14/2021 at 15:08
[2021-05-14] MEDS: fentaNYL 100 MCG/2 ML INJ 50 MCG IV (14:55)
[2021-05-14] MEDS: BUPIVACAINE 0.25% (PF) VIAL 2 ML INJ (15:03)
[2021-05-14] MEDS: IOPAMIDOL 15 ML VIAL 3 ML INJ (15:03)
[2021-05-14] MEDS: MIDAZOLAM 5 MG/5 ML VIAL IV (15:05)
[2021-05-14] MEDS: BETAMETHASONE 30 MG/5 ML MDV 6 MG INJ (15:05)
[2021-05-14] MEDS: DEXAMETHASONE 10 MG/ML VIAL 20 MG INJ (15:05)
--- NOTE | 2021-05-14 15:13 | P.PCN_ITS ---
Date/Time/Diagnoses Date of procedure: 05/14/21 Time of procedure: 15:13 Pre-procedure diagnosis: 1. FORAMINAL STENOSIS WITH LE SYMPTOMS Post-procedure diagnosis: same Procedure Notes Procedure: 1. FLUOROSCOPICALLY GUIDED CONTRAST CONTROLLED TRANSFORAMINAL EPIDURAL STEROID INJECTION - LEFT L4/5 Indications: Ruth is referred by Dr. Sawyer for treatment of Foraminal Stenosis with Left LE Symptoms Physician: Leonard Hester Total Fluoroscopy time (seconds): 9 Total sedation minutes: 15 Complications: none Procedure in detail & Post-procedure care: FINDINGS Foraminal Nerve Root Compression secondary to disc disease and facet hypertrophy DESCRIPTION OF PROCEDURE Following review of allergy and review of potential side effects and complications, including, but not necessarily limited to, infection, allergic reaction, local tissue breakdown, stroke, temporary or permanent nerve injury, paralysis, and possible , the patient indicated that the patient understood and agreed to proceed. An informed consent document was signed by the patient, witnessed by a nurse, and placed in the patient's chart. Additionally, other treatment options including medications, modalities, and physical therapy were reviewed with the patient. After review of previous anaesthesic history and IV conscious sedation the patient was deemed safe to proceed with today?s procedure with IV conscious sedation as ASA class II designation. Safety time-out was performed to confirm patient ID, procedure to be performed and site of procedure. IV sedation was accomplished with a combination of 4mg of Versed and 50mcg of Fentanyl administered by the RN after DO order, titrated to patient comfort during the course of the procedure while the patient remained responsive to all verbal commands In the prone position following sterile prep and drape of the lumbar region, the left L4/5 posterior neuroforamen was identified fluoroscopically. The skin was anesthetized via a 25-gauge 1.5-inch needle with 1% lidocaine solution. At this point, a 25-gauge 3.5-inch spinal needle was atraumatically introduced and advanced under fluoroscopic guidance through the posterior left L4/5 neuroforamen to approximately the anterior aspect of the canal. Depth was confirmed on lateral view. Following negative aspiration, injection of approximately 1.5 cc of Isovue 200 under live fluoroscopy in the AP view confirmed excellent flow along the nerve root, into the epidural space without vascular or intrathecal uptake observed Radiological data, including multiple fluoroscopic views of the lumbosacral spine, reveal a spinal needle at the left L4/5 posterior neuroforamen. Subsequent views show flow of contrast material flowing superiorly and inferiorly along the nerve root confirming epidural flow. Subsequently, a test dose of 1.5 cc of 1% lidocaine solution was administered and patient was observed for two minutes for signs or symptoms of complications, including abdominal pain, shortness of breath, bilateral upper or lower extremity weakness, nausea and vomiting, prior to steroid injection. At this point, a total of 3cc or 20mg of dexamethasone and 6mg of betamethasone was injected without incident. The procedure tolerated the procedure well without signs or symptoms of complications prior to transfer to the recovery area continued monitoring without incident. The patient was then transferred to the recovery area where they were observed for an appropriate time after the injection. The patient reported a VAS score of 7 prior to the procedure and a post- procedure VAS of 0. POST OP INSTRUCTIONS The patient was provided a Pain Log to continue to record their response to the target-specific procedure prior to follow-up visit with their referring physician. Additionally, specific post-injection care instructions and a contact number to our office were provided if concerns arise regarding possible complications associated with the procedure are suspected.
== END 2021-05-14 15:52 | disposition home or self-care (01) ==
LOC: RAD 14:18
PROVIDERS: PCP Family Medicine; Referring Provider Physical Medicine & Rehabilitation; Visit Provider Physical Medicine & Rehabilitation
DX: M48.061 Spinal stenosis, lumbar region without neurogenic claudication (principal); M51.16 Intervertebral disc disorders with radiculopathy, lumbar region
CPT/HCPCS: 64483; 99152; J0702; J1100; J2250; J3010